=== PATIENT | female | born 2005 ===

== ENCOUNTER 2024-11-23 06:31 | Emergency (ER) | payer OTHER ==
[~2024-11-23] VITALS: Ht 165.1 cm; Wt 65.8 kg
[2024-11-23] MEDS ORDERED: METPRE4DP PO (07:24)
== END 2024-11-23 07:43 | disposition home or self-care (01) ==
LOC: ER 06:31
DX: L23.9 Allergic contact dermatitis, unspecified cause (principal); Z79.899 Other long term (current) drug therapy
CPT/HCPCS: 99283; A9270; J7512